=== PATIENT | female | born 1970 | race Caucasian/White ===

== ENCOUNTER 2020-05-30 19:17 | Emergency (ER) | payer OTHER, MEDICAID ==
[~2020-05-30] VITALS: Ht 160 cm; Wt 59.0 kg
[2020-05-30 19:24] VITALS: Ht 160 cm; Wt 59.0 kg
[2020-05-30 21:02] LABS: BASOPHIL % 0.5 % (0.2-1.3); PLATELET COUNT 277 x10^3mcL (179-408); RED CELL DISTRIBUTION WIDTH 12.6 % (12.3-17.7)
[2020-05-30 21:39] LABS: CALCIUM 8.3 mg/dL (8.5-10.1); CARBON DIOXIDE 23.6 mmol/L (21-32); CHLORIDE SERUM 105 mmol/L (98-107); CREATININE SERUM 0.8 mg/dL (0.6-1.0); GFR1 > 60 mL/min; GLUCOSE SERUM 91 mg/dL (74-106); POTASSIUM SERUM 3.3 mmol/L (3.5-5.1); SODIUM SERUM 140 mmol/L (136-145)
[2020-05-30 21:43] LABS: ALBUMIN 3.2 g/dL (3.4-5.0); ALKALINE PHOSPHATASE 104 U/L (46-116); ALT/SGPT 23 U/L (14-59); AST/SGOT 22 U/L (15-37); BILIRUBIN TOTAL 0.2 mg/dL (0.20-1.00); TOTAL PROTEIN, SERUM 7.2 g/dL (6.4-8.2)
[2020-05-30 21:46] LABS: AMPHETAMINE QUAL UR POSITIVE (See below)
[2020-06-01] MEDS ORDERED: MIRTAZAPINE7.5 M1 PO (01:53)
[2020-06-01 14:42] VITALS: BP 103/63
== END 2020-06-01 14:42 | disposition designated cancer center or children's hospital (05) ==
LOC: ED 19:17
PROVIDERS: Emergency Medicine
DX: R41.82 Altered mental status, unspecified (principal); F10.129 Alcohol abuse with intoxication, unspecified; F29 Unspecified psychosis not due to a substance or known physiological condition; Z20.828 Contact with and (suspected) exposure to other viral communicable diseases
CPT/HCPCS: 99406; G0480; J1630; J2060; U0003